=== PATIENT | male | born 1955 | race Caucasian/White ===

== ENCOUNTER 2022-08-19 11:49 | Observation (INO) | payer MEDICARE, SELFPAY ==
[2022-08-19 11:49] VITALS: BP 157/86; PULSE 99; RESP 16; TEMP 36.6; O2SAT 100; BMI 22.0
--- NOTE | 2022-08-19 13:14 | CT_ITS ---
STUDY: CT ABDOMEN AND PELVIS WITH CONTRAST REASON FOR EXAM: Male, 66 years old. Abdominal pain AND LOW WENDY GLOBIN RADIATION DOSAGE (If Supplied By Facility): CTDIvol = ( 10.39 ) mGy, DLP = ( 539.04 ) mGycm TECHNIQUE: Transaxial images were obtained from the dome of the diaphragm to the symphysis pubis without oral contrast. IV 100mL Isovue-370 was administered. Sagittal and coronal images were reconstructed. Individualized dose optimization techniques were used for this CT. COMPARISON: None. FINDINGS: Mild degree of increased markings at the right lung base suggestive of a mild atelectasis. Minimal pleural effusion. Coronary artery calcification. There is decreased attenuation of the liver consistent with steatosis. There is a 1.5 cm x 2.1 cm cyst in the medial aspect of the left lobe of the liver. Normal gallbladder and extrahepatic biliary system. Normal spleen. Normal pancreas. Normal bilateral adrenal glands. Normal right kidney. Normal left kidney. There is a small hiatal hernia. There is a 9.4 cm by 6.2 cm x 6 cm heterogeneous mass in the right hepatic flexure extending into the proximal transverse colon. There is a fluid dilatation of the ascending colon and cecum as well as the dilated fluid-filled distal small bowel loops. There is also evidence of sigmoid diverticulosis. There is scattered atherosclerotic calcification of the abdominal aorta, without a demonstrated aneurysm. Normal inferior vena cava. Normal retroperitoneum. Normal urinary bladder. Small right inguinal hernia containing nondilated small bowel. There are mild degenerative changes of the visualized lumbar spine. CT/Abdomen/Pelvis W IV Cont ONLY IMPRESSION: Large necrotic mass in the hepatic flexure and proximal transverse colon with evidence of fluid dilatation of the descending colon and cecum as well as fluid dilatation of the distal small bowel loops. A neoplastic process should be ruled out. Electronically Signed: Rajiv Carter MD at 14:38 EST ,
[2022-08-19 13:29] LABS: Absolute Lymphocyte Count 0.47 X10^3/uL (0.83-4.51); Absolute Neutrophil Count 11.6 X10^3/uL (2.0-7.7); Basophil# 0.05 X10^3/uL; Basophil% 0.4 % (0-1); Eosinophil# 0.03 X10^3/uL; Eosinophils% 0.2 % (0-5); Hematocrit 26.1 % (40-54); Hemoglobin 7.3 g/dL (13.0-16.5); Lymphocyte # 0.47 X10^3/ul (0.83-4.51); Lymphocyte % 3.6 % (19-41); Mean Corpuscular Hgb 18.3 pg (27.0-32.0); Mean Corpuscular Volume 65.4 fL (80-94); Mean Platelet Vol. 9.6 fl (6.2-12.0); Monocyte# 0.81 X10^3/uL; Monocyte% 6.2 % (0-10); NRBC Flagged by Analyzer 0 % (0-5); Neutrophil # 11.57 X10^3/uL (2.7-7.7); Neutrophil % 89.1 % (47-70); POSITIVE DIFFERENTIAL YES; Platelet Count 744 K/mm3 (150-450); RBC Distribution Width SD 45.4 fl (35.1-43.9); Red Blood Count 3.99 M/mm3 (4.6-6.2)
[2022-08-19 13:31] LABS: Differential Indicated SCAN CRITERIA MET
[2022-08-19 13:47] LABS: AST(SGOT) 17 U/L (15-37); Alanine Aminotransfer ALT/SGPT 19 U/L (16-61); Albumin, Serum 2.8 g/dL (3.2-5.0); Alkaline Phosphatase 98 U/L (45-117); Anion Gap 12 (5-15); BUN 22 mg/dL (7-18); BUN/Creat Ratio 19.6 RATIO (10-20); Bilirubin, Direct 0.11 mg/dL (0.00-0.30); Calcium,Total 9.7 mg/dL (8.5-10.1); Chloride 99 mmol/L (98-107); Creatinine, Serum 1.12 mg/dL (0.70-1.30); EST Glomerular Filtration Rate 69 mL/min (>60); Est Glom Filt Rate - Afr Amer 84 mL/min (>60); Estimated Creatinine Clearance 64.88 ml/min; Globulin 4.7 g/dL (2.2-4.2); Glucose 111 mg/dL (74-106); Lipase 54 U/L (73-393); Potassium 3.6 mmol/L (3.5-5.1); Protein, Total 7.5 g/dL (6.4-8.2); Sodium Level 135 mmol/L (136-145)
[2022-08-19 14:05] LABS: Anisocytosis 1+; Microcytosis 1+; Platelet Estimate MKD INC (ADEQ)
[2022-08-19 14:36] VITALS: BP 113/77; PULSE 99; RESP 16; O2SAT 99
--- NOTE | 2022-08-19 15:51 | EX.ED.DYSGE1 ---
HPI History of Present Illness Chief Complaint: Abd Pain Informant: patient Narrative Narrative: 66-year-old male presenting to the emergency room with anemia and abdominal pain. He tells me that he has been anemic for a while and his doctor informed him that he was down to around 7 and lately he has been feeling weaker. He has not had a colonoscopy. He has not had syncope. He notes that his stools at times are black and other times or not. He states that he did a Cologuard test that was positive. He has had some pain in the abdomen particularly in the right upper quadrant. He notes about a 1 or 2 pound weight loss. [facility] Medical History Low hemoglobin Home Medications NK 08/19/22 [History Last Taken Unknown] Allergy/AdvReac Type Severity Reaction Status Date / Time Penicillins Allergy Hives Verified 08/19/22 11:53 Social History (Updated 08/19/22 @ 15:[address] Sekou Mercado DO) current gender identity: male Smoking Status: Former smoker ROS ROS ED Constitutional Constitutional ED: Denies chills, fever(s) or weight loss Eyes Eyes: Denies change in vision or diplopia ENT ENT ED: Denies ear pain, rhinorrhea or sore throat Cardiovascular Cardiovascular: Denies chest pain, orthopnea, palpitations or racing heartbeat Respiratory/Chest Respiratory/Chest: Denies cough, dyspnea or orthopnea Gastrointestinal Gastrointestinal: Reports abdominal pain; Denies diarrhea, nausea or vomiting Genitourinary Genitourinary ED: Denies dysuria, hematuria or urinary frequency Musculoskeletal Musculoskeletal: Denies arthralgias or myalgias Integumentary Denies abscess or rash Neurologic Neurologic: Denies headache(s) or weakness Psychiatric Psychiatric: Denies anxiety, depression, suicidal ideation or suicidal thoughts Endocrine Endocrinology: Denies polydipsia, polyphagia or polyuria Allergic/Immunologic Allergic/Immunologic ED: Denies mouth swelling, tongue swelling or urticaria EXAM Physical Exam Const Vital Signs: 08/19/22 11:49 08/19/22 14:36 Temperature 97.8 F Temperature Source Temporal Pulse Rate 99 99 Respiratory Rate 16 16 Blood Pressure 157/86 H 113/77 Blood Pressure Mean 109 89 Pulse Ox 100 99 Oxygen Delivery Method Room Air Room Air Positive well nourished and well developed General Appearance ED: well developed HEENT Reports normocephalic, head/scalp atraumatic and moist mucous membranes Eyes PERRL and EOMs intact bilaterally Neck no lymphadenopathy, supple and no JVD Resp normal respiratory effort and clear to auscultation bilaterally Cardio regular rate, regular rhythm and no murmurs GI non-tender; Negative for no masses Auscultation: normoactive bowel sounds Palpation: soft and mass firm Back/Spine no CVA tenderness and normal ROM Extremity normal to inspection General Extremety ED: Negative for edema General Extremity: Negative for edema Neuro oriented x3 and CN's II-XII intact bilaterally Sensorium / Orientation: alert Motor Exam: strength 5/5 throughout Psych mental status grossly normal Mood & Affect: Negative for depressed or tearful Skin no rashes or lesions noted and no wounds MDM MDM MDM Narrative Medical decision making narrative: Patient underwent type and screen. White count of 13. Hemoglobin of 7.3. His platelet count is noted to be 744. CT of the abdomen pelvis was obtained. Unfortunately this demonstrates a large necrotic mass near the hepatic flexure into the transverse colon which is most likely the source of his bleeding and cancer. I spoke with the patient at length and using shared decision making decided that we would discuss transferring him to [facility]. This way he can get oncologic follow-up here in [place] but he could still see colorectal surgery. [facility] transfer line was contacted and we are currently awaiting acceptance Lab Data Attestation: I reviewed the patient's lab results. Labs: Laboratory Results - last 24 hr 08/19/22 08/19/22 08/19/22 13:20 13:20 13:20 WBC 13.0 H RBC 3.99 L Hgb 7.3 L Hct 26.1 L MCV 65.4 L MCH 18.3 L MCHC 28.0 L RDW Std Deviation 45.4 H RDW Coeff of Lauro 20.0 H Plt Count 744 H MPV 9.6 Immature Gran % (Auto) 0.500 Neut % (Auto) 89.1 H Lymph % (Auto) 3.6 L Lawrence % (Auto) 6.2 Eos % (Auto) 0.2 Baso % (Auto) 0.4 Absolute Neuts (auto) 11.6 H Absolute Lymphs (auto) 0.47 L Nucleated RBC % 0 Platelet Estimate MKD INC Anisocytosis 1+ Microcytosis 1+ Sodium 135 L Potassium 3.6 Chloride 99 Carbon Dioxide 24.0 Anion Gap 12 BUN 22 H Creatinine 1.12 Estim Creat Clear Calc 64.88 Est GFR (MDRD) Af Amer 84 Est GFR (MDRD) Non-Af 69 BUN/Creatinine Ratio 19.6 Glucose 111 H Calcium 9.7 Total Bilirubin 0.40 Direct Bilirubin 0.11 AST 17 ALT 19 Alkaline Phosphatase 98 Total Protein 7.5 Albumin 2.8 L Globulin 4.7 H Lipase 54 L Blood Type O POSITIVE Antibody Screen NEGATIVE Radiography Diagnostic Testing: Clinical Impression(s) from Imaging Studies Abdomen/Pelvis CT 08/19/22 13:14 IMPRESSION: Large necrotic mass in the hepatic flexure and proximal transverse colon with evidence of fluid dilatation of the descending colon and cecum as well as fluid dilatation of the distal small bowel loops. A neoplastic process should be ruled out. Electronically Signed: Rajiv Carter MD at 14:38 EST , Discharge Plan Triage Chief Complaint: Abd Pain ED Provider: Sekou Mercado Dx/Rx/DC Orders Clinical Impression: ABLA (acute blood loss anemia), Intraabdominal mass, Abdominal pain Prescriptions: No Action NK Primary Care Provider: Juan Antonio Clarke Referrals: Juan Antonio Clarke MD [Primary Care Provider] - Disposition Disposition: Acute Care Hospital Discharge Location: [facility]
[2022-08-19] MEDS: Ondansetron 4 MG/2 ML Vial IV (16:05)
[2022-08-19] MEDS: LORazepam 2 MG/ML Syringe 0.5 MG IV (16:05)
[2022-08-19 16:06] VITALS: BP 157/95; PULSE 104; RESP 16; O2SAT 99
[2022-08-19] MEDS: Metoclopramide 10 MG/2 ML Vial 5 MG IV (17:54)
--- NOTE | 2022-08-19 18:16 | NURSING ---
CALLED [facility]. TALKED TO FERCHO. NEEDS MEDICAL CLEARANCE
[2022-08-19 18:30] VITALS: BP 131/83; PULSE 100; RESP 18; O2SAT 98
[2022-08-19 20:00] VITALS: BP 135/84; PULSE 100; RESP 16; O2SAT 97
--- NOTE | 2022-08-19 21:00 | ED.RN ---
CALLED [facility]. PT IS ACCEPTED BUT DOES NOT HAVE A BED AND WILL NOT HAVE A BED UNTIL TOMORROW. DR MERA AND PATIENT NOTIFIED. PLAN IS TO TALK TO HOSPITALIST FOR ADMISSION UNTIL BED AVAILABLE.
[2022-08-19 22:00] VITALS: BP 113/73; PULSE 97; RESP 19; O2SAT 95
[2022-08-20] VITALS (17 sets, daily range): BP systolic 109–131; BP diastolic 69–82; PULSE 76–100; RESP 16–20; TEMP 36.2–37.4; O2SAT 94–100; BMI 19.1
--- NOTE | 2022-08-20 01:43 | PCM.HP.STD ---
HPI - General General Date of Admission: 08/20/22 HPI Narrative JAMIA LAUGHLIN, is a 66 M who presents to the hospital with anemia and abdominal pain. He says that the abdominal pain has been going on for about a month. Has been having some intermittent nausea and vomiting as well. When he presents to the ER he was found to have a hemoglobin of 7.[address] scan of his abdomen and pelvis showed a necrotic mass in the hepatic flexure of his colon with a dilated cecum and small bowel. He has had a colonoscopy and there is a significant concern for cancer so he had elected to be transferred to [facility] for evaluation for surgery, however he has spent the last 12 hours in our emergency department so the plan was to admit for supportive care pending acceptance to [facility]. He has noticed a couple pounds of weight loss as well over the last couple of months that were unintentional. [facility] Medical History Low hemoglobin Home Medications NK 08/19/22 [History Last Taken Unknown] Allergy/AdvReac Type Severity Reaction Status Date / Time Penicillins Allergy Hives Verified 08/19/22 11:53 Family History (Updated 08/20/22 @ 01:[address] Zeus Rouse MD) Other Heart disease Hypertension Surgical History no surgical history no surgical history Social History (Updated 08/19/22 @ 15:[address] Sekou Mercado DO) current gender identity: male Smoking Status: Former smoker ROS Constitutional Constitutional: Reports change in weight; Denies chills, fatigue, fever(s) or malaise Eyes Eyes: Denies blurry vision ENT HEENT: Denies headache(s) or nasal discharge Cardiovascular Cardiovascular: Denies chest pain, dyspnea on exertion or syncope Respiratory/Chest Respiratory/Chest: Denies cough, shortness of breath at rest or shortness of breath with exertion Gastrointestinal Gastrointestinal: Reports abdominal pain, nausea and vomiting; Denies constipation or diarrhea Genitourinary Genitourinary: Denies dysuria Neurologic Neurologic: Denies focal weakness, numbness or tremor(s) Psychiatric Psychiatric: Denies anxiety or depression Vital Signs Vital Signs Vital Signs: 08/19/22 11:49 08/19/22 14:36 08/19/22 16:06 Temperature 97.8 F Temperature Source Temporal Pulse Rate 99 99 104 H Respiratory Rate 16 16 16 Blood Pressure 157/86 H 113/77 157/95 H Blood Pressure Mean 109 89 115 Blood Pressure Source Blood Pressure Position Blood Pressure Location Pulse Ox 100 99 99 Oxygen Delivery Method Room Air Room Air Room Air 08/19/22 18:30 08/19/22 20:00 08/19/22 22:00 Temperature Temperature Source Pulse Rate 100 100 97 Respiratory Rate 18 16 19 H Blood Pressure 131/83 H 135/84 H 113/73 Blood Pressure Mean 99 101 86 Blood Pressure Source Blood Pressure Position Blood Pressure Location Pulse Ox 98 97 95 Oxygen Delivery Method Room Air Room Air Room Air 08/20/22 00:00 08/20/22 00:34 08/20/22 01:18 Temperature 97.8 F 99.3 F H Temperature Source Temporal Oral Pulse Rate 99 99 100 Respiratory Rate 20 H 20 H 16 Blood Pressure 115/77 115/77 131/72 H Blood Pressure Mean 89 89 91 Blood Pressure Source Monitor Blood Pressure Position Semi-Fowlers Blood Pressure Location Left Arm Pulse Ox 94 94 97 Oxygen Delivery Method Room Air Room Air Room Air 08/20/22 01:00 Temperature 97.8 F Temperature Source Temporal Pulse Rate 99 Respiratory Rate 20 H Blood Pressure 115/77 Blood Pressure Mean 89 Blood Pressure Source Blood Pressure Position Blood Pressure Location Pulse Ox 94 Oxygen Delivery Method Room Air Weight Weight: 137 lb 8 oz Body Mass Index (BMI) 19.1 Physical Exam Narrative General: Alert, Oriented x3, Cooperative, No apparent distress HEENT: Atraumatic, PERRLA, EOMI, Normocephalic Oral: Moist Mucosa Neck: Supple, No JVD Lungs: Clear to auscultation, Normal air movement, No rhonchi, No wheeze, No rales Cardiovascular: Regular rate, Regular Rhythm, Normal S1, Normal S2, No murmurs Abdomen: Soft, mildly tender in the right lower quadrant, Non-Distended, No Hepato-splenomegaly Extremities: No edema, Capillary Refill Less than 3 Seconds Skin: No rashes, No breakdown Musculoskeletal: No Tenderness to Palpation of Joints or Extremities Neurological: Cranial nerves II-XII grossly intact, Motor Exam 5/5 strength throughout, Sensory exam intact to light touch and pain Psych/Mental Status: Normal Affect, Appropriate Results Lab / Micro Data Result Diagrams: 08/19/22 13:20 08/19/22 13:20 Labs: Laboratory Results - last 24 hr 08/19/22 13:20: WBC 13.0 H, RBC 3.99 L, Hgb 7.3 L, Hct 26.1 L, MCV 65.4 L, MCH 18.3 L, MCHC 28.0 L, RDW Std Deviation 45.4 H, RDW Coeff of Lauro 20.0 H, Plt Count 744 H, MPV 9.6, Immature Gran % (Auto) 0.500, Neut % (Auto) 89.1 H, Lymph % (Auto) 3.6 L, Branch % (Auto) 6.2, Eos % (Auto) 0.2, Baso % (Auto) 0.4, Absolute Neuts (auto) 11.6 H, Absolute Lymphs (auto) 0.47 L, Nucleated RBC % 0, Platelet Estimate MKD INC, Anisocytosis 1+, Microcytosis 1+ 08/19/22 13:20: Sodium 135 L, Potassium 3.6, Chloride 99, Carbon Dioxide 24.0, Anion Gap 12, BUN 22 H, Creatinine 1.12, Estim Creat Clear Calc 64.88, Est GFR (MDRD) Af Amer 84, Est GFR (MDRD) Non-Af 69, BUN/Creatinine Ratio 19.6, Glucose 111 H, Calcium 9.7, Total Bilirubin 0.40, Direct Bilirubin 0.11, AST 17, ALT 19, Alkaline Phosphatase 98, Total Protein 7.5, Albumin 2.8 L, Globulin 4.7 H, Lipase 54 L 08/19/22 13:20: Blood Type O POSITIVE, Antibody Screen NEGATIVE Radiology Impression Abdomen/Pelvis CT 08/19/22 13:14 IMPRESSION: Large necrotic mass in the hepatic flexure and proximal transverse colon with evidence of fluid dilatation of the descending colon and cecum as well as fluid dilatation of the distal small bowel loops. A neoplastic process should be ruled out. Electronically Signed: Rajiv Carter MD at 14:38 EST , Assessment & Plan Assessment/Plan (1) Intraabdominal mass: PLAN: Plan 1. Necrotic colon mass in the hepatic flexure/anemia ? We will make him n.p.o. given the colonic and small bowel dilatation ? Continue with IV fluids ? He is not complaining of significant pain at this time ? Pending transfer to [facility] for surgical evaluation ? The anemia is likely as a result of the colon mass, will recheck in the morning and may need to transfuse prior to transfer DVT: Ambulation Charges/Coding Visit Charges OBSV E&M: 59883 Initial observation care L2
[2022-08-20] MEDS: 0.9% Saline Lock 10 ML Syringe IV (01:54)
[2022-08-20] MEDS: 0.9% Normal Saline 1,000 ML 75 ML IV ×2 (01:54→17:57)
[2022-08-20 04:54] LABS: Absolute Lymphocyte Count 0.87 X10^3/uL (0.83-4.51); Absolute Neutrophil Count 9.6 X10^3/uL (2.0-7.7); Basophil# 0.04 X10^3/uL; Basophil% 0.3 % (0-1); Eosinophil# 0.03 X10^3/uL; Eosinophils% 0.3 % (0-5); Hematocrit 22.6 % (40-54); Hemoglobin 6.5 g/dL (13.0-16.5); Lymphocyte # 0.87 X10^3/ul (0.83-4.51); Lymphocyte % 7.3 % (19-41); Mean Corp Hgb Conc 28.8 g/dL (32-36); Mean Corpuscular Hgb 18.7 pg (27.0-32.0); Mean Corpuscular Volume 64.9 fL (80-94); Mean Platelet Vol. 9.4 fl (6.2-12.0); Monocyte# 1.29 X10^3/uL; Monocyte% 10.9 % (0-10); NRBC Flagged by Analyzer 0 % (0-5); Neutrophil # 9.55 X10^3/uL (2.7-7.7); Neutrophil % 80.7 % (47-70); Platelet Count 602 K/mm3 (150-450); RBC Distribution Width SD 45.6 fl (35.1-43.9); Red Blood Count 3.48 M/mm3 (4.6-6.2); White Blood Count 11.8 K/mm3 (4.4-11.0)
[2022-08-20 05:35] LABS: Anion Gap 8 (5-15); BUN 27 mg/dL (7-18); BUN/Creat Ratio 22.7 RATIO (10-20); Calcium,Total 8.9 mg/dL (8.5-10.1); Chloride 102 mmol/L (98-107); Creatinine, Serum 1.19 mg/dL (0.70-1.30); EST Glomerular Filtration Rate 65 mL/min (>60); Est Glom Filt Rate - Afr Amer 78 mL/min (>60); Estimated Creatinine Clearance 53.14 ml/min; Glucose 86 mg/dL (74-106); Potassium 4.1 mmol/L (3.5-5.1); Sodium Level 135 mmol/L (136-145)
--- NOTE | 2022-08-20 09:46 | CASEMGMT ---
Addendum entered by Lila Kurtz 08/20/22 11:49: JOSEF CARRERO checked back into room for choice and made pt aware there was no pressure. Pt and sig other on speakerphone asking JOSEF CARRERO to guarantee that if he went to [facility] that he could follow up in [place]. Made him aware that this RN ALISE could not guarantee this. Pt and sig other chose [facility] [place]. Pt is aware that this trf could be in hours to days. Asked if patient would like a branch of [facility] to be considered if they could take him sooner. Pt states No, the best doctor will be at the [place]. Pt is aware again this could take days. Pt states I guess I will just sit on my ass and wait then. When JOSEF CARRERO entered room, pt with tears in his eyes. Offered SW for support, pt declined at this time. He states his sig other's father is going to work on financial POA papers for him. He denies further needs at this time. Updated charge nurse and hospitalist. Addendum entered by Lila Krutz 08/20/22 10:48: JOSEF CARRERO back into pt room, pt on phone with sig other, pt states they have not had enough time to make a decision. Asked pt to put on his call light when he is ready with a decision, he verbalized understanding. Visitor arrived to room. Updated hospitalist. Addendum entered by Lila Kurtz 08/20/22 10:38: JOSEF CARRERO received notification from charge nurse that [facility] has declined pt. JOSEF CARRERO in to pt room, pt made aware. He states he will not make a decision until the physician lastnight is notified and he makes the decision with his sig other. JOSEF CARRERO made pt aware that it is his choice. He is adamant he wants the ER physician contacted. Spoke with deneen flynn Crystal on the phone as well. No decision made. TC to ER, physician is not working today. Updated hospitalist. JOSEF CARRERO back into pt room, made pt and sig other aware. Sig other states she needs 5 minutes. JOSEF CARRERO to check back. Original Note: According to [facility] website, the following tertiary facilities are in network: [facility], [place], [facility], [facility], [facility] and . Currently the pt is looking to be trf'd to [facility]. Per charge nurse, they are seeing if they can get financial clearance for pt insurance. RN CM in to pt room, nurse at bedside. Discussed with patient that [facility] is out of network and they are working on getting financial clearance. Asked for pt second choice should they not be in network. Pt states he expected to have been to [facility] within 2 hours of the decision lastnight and to have been done with surgery today and yet here he sits in [facility]. Pt states he cannot make this decision, states a doctor needs to make it. Made pt aware that this is his choice. He states again he wants [facility]. Made pt aware this may not be covered as another in network facility is. Asked pt to think about a second option and [facility] will be called shortly to see if they obtained clearance. Pt is agreeable to this plan.
--- NOTE | 2022-08-20 10:26 | NURSING ---
Almost finished with the first 15min of blood transfusion when Iv looked like it was infiltrated. IV taken off due to be tender, swollen and pink. [facility] Nurse attempted New iv site x2 and was unsuccessful. Zuleika Beckham Rn in room at this time Attempting.
--- NOTE | 2022-08-20 12:49 | PCM.HOSP.N ---
Hospitalist Note Presented yesterday afternoon to the emergency department with abdominal pain, some intermittent nausea and vomiting, and anemia. The patient was found to have a colorectal mass in the hepatic flexure that was large and necrotic appearing (9.4 x 6.2 x 6 cm). Patient requested transfer to tertiary center and was initially sec to [facility] however they are out of network and have declined patient. Second choice was [facility]. I have discussed the case with physician at [facility] and they have accepted for transfer pending bed availability. It is unclear when this will occur and this was voiced to the patient. He has also had weight loss and was not make with a hemoglobin of 7.3 on admission. He also reported he had a Cologuard that was positive as an outpatient but it does not sound like he had any other further work-up done. Hemoglobin this morning was 6.5 and he was agreeable to transfusion. 2 units packed red blood cells were given. Images from admission have been pushed to [facility] and we will hold off on any further imaging at this time so they will have all information readily available to them to observe after admission there. I will get a repeat CBC in BMP in the a.m. along with a CEA. Pending discharge to [facility] when bed available.
--- NOTE | 2022-08-20 13:52 | NURSING ---
2nd unit of PRBC started at this time.
[2022-08-20 17:25] LABS: Hematocrit 32.2 % (40-54); Hemoglobin 9.7 g/dL (13.0-16.5)
[2022-08-21 03:30] VITALS: BP 124/78; PULSE 80; RESP 16; TEMP 36.7; O2SAT 98
[2022-08-21 04:00] VITALS: BP 124/78; PULSE 80; RESP 16; TEMP 36.7; O2SAT 98
[2022-08-21] MEDS: 0.9% Normal Saline 1,000 ML 75 ML IV (05:18)
[2022-08-21 06:11] LABS: Absolute Lymphocyte Count 1.07 X10^3/uL (0.83-4.51); Absolute Neutrophil Count 11.8 X10^3/uL (2.0-7.7); Basophil# 0.09 X10^3/uL; Basophil% 0.6 % (0-1); Eosinophil# 0.28 X10^3/uL; Eosinophils% 1.9 % (0-5); Hematocrit 31.9 % (40-54); Hemoglobin 9.8 g/dL (13.0-16.5); Lymphocyte # 1.07 X10^3/ul (0.83-4.51); Lymphocyte % 7.1 % (19-41); Mean Corp Hgb Conc 30.7 g/dL (32-36); Mean Corpuscular Hgb 21.6 pg (27.0-32.0); Mean Corpuscular Volume 70.3 fL (80-94); Mean Platelet Vol. 9.3 fl (6.2-12.0); Monocyte% 11.3 % (0-10); NRBC Flagged by Analyzer 0 % (0-5); Neutrophil # 11.75 X10^3/uL (2.7-7.7); Neutrophil % 78.3 % (47-70); POSITIVE DIFFERENTIAL YES; POSITIVE MORPHOLOGY YES; Platelet Count 545 K/mm3 (150-450); RBC Distribution Width CV 22.5 % (11.6-14.6); RBC Distribution Width SD 55.6 fl (35.1-43.9); Red Blood Count 4.54 M/mm3 (4.6-6.2)
[2022-08-21 06:15] LABS: Differential Indicated SCAN CRITERIA MET
[2022-08-21 06:39] LABS: Anion Gap 10 (5-15); BUN 22 mg/dL (7-18); BUN/Creat Ratio 25.2 RATIO (10-20); Calcium,Total 8.9 mg/dL (8.5-10.1); Chloride 104 mmol/L (98-107); Creatinine, Serum 0.87 mg/dL (0.70-1.30); EST Glomerular Filtration Rate 93 mL/min (>60); Est Glom Filt Rate - Afr Amer 112 mL/min (>60); Estimated Creatinine Clearance 72.68 ml/min; Glucose 62 mg/dL (74-106); Potassium 3.6 mmol/L (3.5-5.1); Sodium Level 135 mmol/L (136-145)
[2022-08-21 06:45] LABS: Anisocytosis 2+; Differential Comment SCANNED; Polychromasia 1+
[2022-08-21 07:28] VITALS: BP 115/72; PULSE 73; RESP 18; TEMP 36.7; O2SAT 98
[2022-08-21 08:23] VITALS: PULSE 73; RESP 18; O2SAT 98
[2022-08-21 09:54] VITALS: BP 115/72; PULSE 73; RESP 18; TEMP 36.7; O2SAT 98
[2022-08-21 11:04] LABS: Carcinoembryonic Antigen 42.3 ng/mL (0.0-4.7)
--- NOTE | 2022-08-21 12:25 | PCM.DC.SUM ---
Providers Date of Admission: 08/20/22 Date of Discharge: 08/21/22 Primary Care Physician: Dr. Juan Antonio Clarke MD Reason For Visit: AWAITING TRANSFER Diagnosis Discharge Diagnosis (1) Intraabdominal mass: Status: Acute Code(s): R19.00 - Intra-abdominal and pelvic swelling, mass and lump, unspecified site Medications at Discharge Home Medications NK 08/19/22 Hospital Course Operations None Procedures - (CT of the abdomen and pelvis) Summary of Care Provided Minutes Spent on Discharge: 36 Hospital Course: Mr. Tariq is a 66-year-old white male who presented to the emergency department [facility] on 08/19/2022 complaining of abdominal pain and anemia. Patient reported on presentation that he had been anemic for a while and his doctor informed him that he had dropped to approximately 7 and lately was feeling weaker. He reported that he had intermittent dark stools and that a Cologuard was done approximately 1 year ago that was positive. He had not had a colonoscopy or any other further work-up. He denied any lightheadedness or syncope but did have abdominal complaints particularly in the right upper quadrant. He noted some mild unintentional weight loss as well. Vital signs were stable upon presentation. CBC on presentation demonstrated a white count of 13.0 with a hemoglobin of 7.3 and an MCV of 65.4. Platelet count was 744,000. His chemistry panel was unremarkable. Liver function was normal. Blood type is type O and antibody screen was negative. CT of the abdomen pelvis was obtained and showed a large necrotic mass that was approximately 9 x 6 x 6 cm in the hepatic flexure and the proximal transverse colon as well as evidence of fluid dilation in the descending colon and cecum as well as fluid dilation of the distal small bowel loops suggestive of neoplastic process. The results were discussed with the patient by the emergency department physician and initial intent was to transfer to [facility] for further evaluation by colorectal surgery. They initially excepted for transfer but a bed was not available and the patient was admitted here until a bed was made available there. Unfortunately, [facility] was not able to take the patient as his insurance did not have approval at their institution and the patient then requested transfer to [facility]. We obtained acceptance up at [facility] however the wait was significantly long and upon further discussion with the family they then requested transfer to [facility]. On 08/21/2022 I discussed the case with [facility] and they accepted for transfer by Dr. Paredes to the general surgery service. Colorectal surgery will be consulted upon transfer. Hemoglobin on the a.m. of 08/20/2022 was found to be 6.5 therefore the patient was transferred fused 2 units of packed red blood cells in preparation for probable surgery. Hemoglobin increased posttransfusion to 9.7 and on the a.m. of 08/21/2022 was 9.8. CEA was pending at the time of discharge. The patient was transferred to [facility] in stable condition on 08/21/2022. CT of the abdomen pelvis imaging was pushed to [facility] prior to discharge. Discharge diagnoses: Large colon mass-suspect neoplastic process Iron deficiency anemia Thrombocytosis secondary to anemia Leukocytosis-resolved Unintentional weight loss History of tobacco abuse Physical Exam Const alert, oriented x3 and no apparent distress Constitutional Narrative: Thin, upper middle-aged white male lying in bed, significant other at bedside, affect is flat but patient is appropriately interactive General Appearance: cooperative, comfortable, well kempt and well developed Orientation / Consciousness: awake, oriented to person, oriented to place and oriented to time Exam Limitations: no limitations Nutritional Appearance: thin HEENT normocephalic, head/scalp atraumatic, hearing grossly normal bilaterally and moist oral mucous membranes HEENT Narrative: Mallampati is 2, no thrush Eyes PERRL and EOMs intact bilaterally; Negative for conjunctivae normal Eyes Narrative: Conjunctiva pale bilaterally, no scleral icterus Neck no lymphadenopathy and supple Neck Narrative: Trachea midline, no thyroid enlargement Resp normal respiratory effort, no retractions, no use of accessory muscles and clear to auscultation bilaterally Resp Narrative: Diminished but clear Auscultation: Negative for crackles, rales, rhonchi or wheezes Cardio regular rate, regular rhythm, S1 normal heart sound, S2 normal heart sound, no murmurs, no rub, no gallops, no clicks and no JVD GI soft to palpation and non-tender GI Narrative: Bowel sounds are normal active, large mass located in the right upper quadrant extending into the central abdomen Extremity no clubbing, cyanosis or edema Extremity Narrative: Pedal pulses/radial pulses 2+ Skin no rashes or lesions noted, no wounds, skin turgor normal and no jaundice Neuro oriented x3, CN's II-XII intact bilaterally, moves all extremities, no focal motor deficits and no sensory deficits noted Speech: speech normal Psych Psych Narrative: Affect is somewhat flat Weight / BMI Weight Weight: 62.369 kg Body Mass Index (BMI) 19.1 ABG / Lab / Microbiology Data Result Diagrams: 08/21/22 05:43 08/21/22 05:43 Laboratory: Laboratory Results - last 24 hr 08/19/22 13:20: Crossmatch See Detail 08/19/22 13:20: Carcinoembryonic Ag 42.3 H 08/20/22 17:15: Hgb 9.7 L, Hct 32.2 L 08/21/22 05:43: WBC 15.0 H, RBC 4.54 L, Hgb 9.8 L, Hct 31.9 L, MCV 70.3 L D, MCH 21.6 L, MCHC 30.7 L D, RDW Std Deviation 55.6 H, RDW Coeff of Lauro 22.5 H, Plt Count 545 H, MPV 9.3, Immature Gran % (Auto) 0.800, Neut % (Auto) 78.3 H, Lymph % (Auto) 7.1 L, [place] % (Auto) 11.3 H, Eos % (Auto) 1.9, Baso % (Auto) 0.6, Absolute Neuts (auto) 11.8 H, Absolute Lymphs (auto) 1.07, Nucleated RBC % 0, Differential Comment SCANNED, Diff Path Review May foll, Polychromasia 1+, Anisocytosis 2+ 08/21/22 05:43: Sodium 135 L, Potassium 3.6, Chloride 104, Carbon Dioxide 21.0, Anion Gap 10, BUN 22 H, Creatinine 0.87, Estim Creat Clear Calc 72.68, Est GFR (MDRD) Af Amer 112, Est GFR (MDRD) Non-Af 93, BUN/Creatinine Ratio 25.2 H, Glucose 62 L, Calcium 8.9 Microbiology: Microbiology 08/20/22 14:00 Nasal Secretion SARS-CoV-2 Antigen (Rapid) - Final Meaningful Use Info Meaningful Use Diagnoses (Choose all that apply): None applicable Discharge Plan Admission Admit Date/Time: 08/20/22 00:26 Primary Reason for Your Visit: Abdominal pain Attending Provider: Nieves Holt Primary Care Provider: Juan Antonio Clarke Consulting Providers: Zeus Rouse Discharge Orders/Prescriptions Prescriptions: No Action NK Referrals / Follow Up: Juan Antonio Clarke MD [Primary Care Provider] - Disposition Disposition (needs filled in before D/C Order can be placed): Acute Care Hospital Charges/Coding Visit Charges Inpatient E&M: 11447 Disch Hosp
--- NOTE | 2022-08-21 13:37 | CASEMGMT ---
Social Work SW spoke w/pt and significant other in room. Pt's significant other had asked CM about short term disability. SW explained that SW is not aware of any short term disability unless pt has paid into something, such as [employer]. 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 SW offered them information from Social Security for intermediate designer disability. They declined this information. Pt also stated to SW he is anxious, SW offered support. No further social service needs are anticipated at this time. Pt awaiting transfer. SW remains available for any additional support or resources. NAVDEEP Mayers
[2022-08-21 14:40] LABS: Pathologist Review Reviewed
[2022-08-21 16:00] VITALS: BP 120/75; PULSE 75; RESP 16; TEMP 36.7; O2SAT 98
--- NOTE | 2022-08-21 16:13 | NURSING ---
bed received at [facility], sx unit, bed [id number] report number [phone], [facility], rn and patient aware.
== END 2022-08-21 17:08 | disposition short-term general hospital (02) | DRG 375 ==
LOC: ED 15:56 → MS3 08-20 01:41
PROVIDERS: Admitting Provider Family Medicine; Emergency Provider Emergency Medicine; PCP Family Medicine; Visit Provider Internal Medicine
DX: R19.00 Intra-abdominal and pelvic swelling, mass and lump, unspecified site (principal); Z68.1 Body mass index [BMI] 19.9 or less, adult; D50.9 Iron deficiency anemia, unspecified; D72.829 Elevated white blood cell count, unspecified; R63.4 Abnormal weight loss; Z20.822 Contact with and (suspected) exposure to COVID-19; Z87.891 Personal history of nicotine dependence; D75.838 Other thrombocytosis
CPT/HCPCS: 36415; 36430; 74177; 80048; 80076; 82378; 83690; 85014; 85018; 85025; 86850; 86900; 86901; 86920; 87426; 96361; 96374; 96375; 99218; 99284; J7030; J7040; P9016; Q9967; A4216; G0378; J2405

== ENCOUNTER 2023-01-25 10:10 | Emergency (ER) | payer MEDICARE, SELFPAY ==
[2023-01-25 10:10] VITALS: BP 139/84; PULSE 83; RESP 16; TEMP 36.6; O2SAT 97; BMI 22.1
--- NOTE | 2023-01-25 10:32 | ED.VIS.GI ---
HPI HPI - GI History of Present Illness Chief Complaint: Abd Pain Informant: patient Abdominal Pain/Flank Pain Onset: Days (2-3) Context: Onset with activity (nothing specific) and Gradual Onset Timing: Intermittent Quality: - (not painful) Location: - (bulge, mid-abd) Current Severity: Gone Maximum Severity: 10/13 Nausea/Vomiting/Emesis GI Symptom: Negative for Nausea or Vomiting Narrative Narrative: Patient has a bulge in his mid abdomen couple days ago. 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 He did not have any sudden onset of bulging during lifting, bearing down, or anything else, just noticed it. It now occurs when he coughs, and certain scenarios. For the most part it has not been painful. He did notice a little pain when he was lying in certain positions and not in others, but he has had no nausea, vomiting, redness, and has been having normal bowel movements and urination. He had two thirds of his colon resected due to blood loss anemia that resulted in being diagnosed with colon cancer, this was done about 5 months ago at [facility] and he has not been able to follow-up yet due to his appointment being in May. [facility] Medical History (Updated 01/25/23 @ 10:[address] Christian Hoffmann MD) Colon cancer Ex-smoker Low hemoglobin Home Medications NK 08/19/22 [History Last Taken Unknown] Allergy/AdvReac Type Severity Reaction Status Date / Time Penicillins Allergy Hives Verified 01/25/23 10:13 Family History (Updated 08/20/22 @ 01:[address] Zeus Rouse MD) Other Heart disease Hypertension Surgical History (Updated 01/25/23 @ 10:[address] Christian Hoffmann MD) History of inguinal herniorrhaphy History of partial colectomy Social History Smoking Status: Former smoker ROS ROS ED Constitutional Constitutional ED: Denies chills or fever(s) Eyes Eyes: Denies change in vision or diplopia ENT ENT ED: Denies rhinorrhea or sore throat Cardiovascular Cardiovascular: Denies chest pain or palpitations Respiratory/Chest Respiratory/Chest: Denies cough or dyspnea Gastrointestinal Gastrointestinal: Reports as per HPI; Denies abdominal pain, diarrhea, nausea or vomiting Genitourinary Genitourinary ED: Denies dysuria or hematuria Musculoskeletal Musculoskeletal: Denies back pain or neck pain Integumentary Denies abscess or rash Neurologic Neurologic: Denies headache(s), paresthesias or weakness Psychiatric Psychiatric: Denies anxiety or suicidal thoughts EXAM Physical Exam Const Vital Signs: 01/25/23 10:10 Temperature 97.9 F Temperature Source Temporal Pulse Rate 83 Respiratory Rate 16 Blood Pressure 139/84 H Blood Pressure Mean 102 Pulse Ox 97 Oxygen Delivery Method Room Air Positive well nourished and well developed General Appearance ED: well developed and NAD HEENT Reports moist mucous membranes normocephalic and atraumatic Eyes PERRL and EOMs intact bilaterally Neck full ROM and supple Resp normal respiratory effort and clear to auscultation bilaterally Cardio regular rate, regular rhythm and no murmurs GI non-tender and non-distended GI Narrative: When lying supine, patient has no palpable hernias, abdominal tenderness, abdomen is soft and nondistended with normal bowel sounds present. There is a well-healed midline abdominal surgical incision. With standing, there is a clearly palpable abdominal wall defect about 4 cm above the umbilicus and not involving the umbilicus, just to the left of the incision. With coughing, easily reproduces a small hernia there that is easily and painlessly reducible. Auscultation: normoactive bowel sounds Palpation: soft Back/Spine no CVA tenderness General Back: other FROM Extremity normal to inspection General Extremety ED: Negative for edema, pulses abnormal or tenderness General Extremity: Negative for edema or pulses abnormal Neuro oriented x3, CN's II-XII intact bilaterally and no sensory deficits noted Sensorium / Orientation: awake and alert Motor Exam: strength 5/5 throughout Skin no rashes or lesions noted and no wounds MDM MDM MDM Narrative Medical decision making narrative: Reassured there is no sign of any incarceration or strangulation right now. I do agree as the patient suspected that he has a hernia. Refer to surgery at [facility] as well as here, so that he has multiple resources. We discussed treatment at home if he has problems reducing it, reasons to return to the hospital, which basically include signs of incarceration. He is comfortable with that plan and given an Alfredo wrap for binding it temporarily. Discharge Plan Triage Chief Complaint: Abd Pain ED Provider: Christian Hoffmann Dx/Rx/DC Orders Clinical Impression: Incisional hernia of anterior abdominal wall without obstruction or gangrene Instructions: Having Hernia Surgery: Patch Repair, ED Hernia (Adult) Prescriptions: No Action NK Primary Care Provider: Juan Antonio Clarke Referrals: Sekou Nash MD [Med Staff - Active Staff] - Juan Antonio Clarke MD [Primary Care Provider] - Mckay Roa MD [Med Staff - Active Staff] - Disposition Disposition: Home, Self Care
== END 2023-01-25 10:56 | disposition home or self-care (01) ==
LOC: ED 10:50
PROVIDERS: Emergency Provider Emergency Medicine; PCP Family Medicine; Visit Provider Emergency Medicine
DX: K43.2 Incisional hernia without obstruction or gangrene (principal); C18.9 Malignant neoplasm of colon, unspecified; Z90.49 Acquired absence of other specified parts of digestive tract; Z87.891 Personal history of nicotine dependence
CPT/HCPCS: 99282